=== PATIENT | female | born 1970 | race African-American/Black ===

== ENCOUNTER 2018-05-12 22:34 | Observation (INO) ==
[2018-05-13] LABS: Basophils % 0.2 % (0.0-0.8); Eosinophils # 0.2 10*3/uL (0.0-0.87); Eosinophils % 3.8 % (0.00-10.9); Hematocrit 40.4 VOL% (35.7-47.0); Hemoglobin 13.6 GM/DL (12.0-16.0); Immature Granulocytes % 0.3 %; Immature Granulocytes Absolute 0.02 #; Lymphocytes % 32.4 % (21.3-54.2); Mean Corpuscular HGB Conc 33.7 GM/DL (32-36); Mean Corpuscular Hemoglobin 33 PG (27-34); Mean Corpuscular Volume 98.3 FL (87-102); Mean Platelet Volume 11.1 FL (9.6-12.0); Monocytes # 0.4 10*3/uL (0.11-0.8); Neutrophils # 3.5 10*3/uL (1.4-7.4); Neutrophils % 56.3 % (38.7-73.9); Red Blood Count 4.11 MC/CUMM (3.8-5.5); Red Cell Distribution Width 12.1 % (9.3-17.3); White Blood Count 6.1 T/CUMM (4-12)
[2018-05-13 00:05] LABS: Platelet Count 69 T/CUMM (130-400)
[2018-05-13 00:07] LABS: PT Patient Result 10.5 SECS
[2018-05-13 00:21] LABS: Albumin 4.2 G/DL (3.4-5.0); Bilirubin,Total 0.8 MG/DL (0.2-1.0); Calcium 9.3 MG/DL (8.5-10.1); Potassium 3.7 MMOL/L (3.5-5.1); Total Protein 8.5 G/DL (6.4-8.3)
[2018-05-13 07:17] LABS: Basophils % 0.2 % (0.0-0.8); Eosinophils % 0.3 % (0.00-10.9); Hematocrit 37.9 VOL% (35.7-47.0); Hemoglobin 12.8 GM/DL (12.0-16.0); Immature Granulocytes % 0.6 %; Immature Granulocytes Absolute 0.06 #; Lymphocytes # 1.6 10*3/uL (1.4-4.0); Lymphocytes % 16.4 % (21.3-54.2); Mean Corpuscular HGB Conc 33.8 GM/DL (32-36); Mean Corpuscular Hemoglobin 34 PG (27-34); Mean Platelet Volume 11.5 FL (9.6-12.0); Monocytes # 0.5 10*3/uL (0.11-0.8); Monocytes % 4.8 % (1.7-12.7); Neutrophils # 7.4 10*3/uL (1.4-7.4); Neutrophils % 77.7 % (38.7-73.9); Red Blood Count 3.79 MC/CUMM (3.8-5.5); Red Cell Distribution Width 12.3 % (9.3-17.3)
[2018-05-13 07:22] LABS: White Blood Count 9.5 T/CUMM (4-12)
[2018-05-13 07:23] LABS: Platelet Count 230 T/CUMM (130-400)
[2018-05-13 07:26] LABS: Calcium 8.8 MG/DL (8.5-10.1)
[2018-05-14 18:32] VITALS: BP 119/69
== END 2018-05-14 16:25 | disposition home or self-care (01) | DRG 494 ==
LOC: EDBD → EDUNIT# → N.ED 22:34 → N.EDINP 05-13 00:01 → INTOOBSV 05-13 00:01 → N.3E 05-13 00:50
PROVIDERS: ADMIT Orthopaedic Surgery; ATTEND Orthopaedic Surgery